=== PATIENT | male | born 1935 | race African-American/Black ===

== ENCOUNTER 2018-03-28 10:22 | Inpatient (IN) | payer MEDICARE ==
[~2018-03-28] VITALS: Ht 172.7 cm; Wt 66.0 kg
[~2018-03-28 10:22] MED LIST: ATEN50TA PO; BISA-81 RC; CALC3.8S NS; FERR325T6 PO; FINA5TAB11 PO; LIP40 PO; MULT-477 PO; OMEP20CA10 PO; SENN8.6T71 PO
[2018-03-28] MEDS ORDERED: DEXT 5%/LACTATED RINGERS 1,000 ML IV SCH (10:50)
[2018-03-28] MEDS ORDERED: SODIUM CHLORIDE 0.9% 1,000 ML IV SCH (12:15)
[2018-03-28] MEDS ORDERED: BACITRACIN 50,000 UNITS/VIAL ONE (13:59)
[2018-03-28] MEDS ORDERED: FENTANYL CITRATE/PF 50MCG/ML 2ML VIAL ONE (14:00)
[2018-03-28] MEDS ORDERED: PROPOFOL 200MG/20ML VIAL IV ONE (14:00)
[2018-03-28] MEDS ORDERED: LOSA25TA12 PO (14:50)
[2018-03-28] MEDS ORDERED: INSU100I28 SQ (14:50)
[2018-03-28] MEDS ORDERED: METO25TA6 PO (14:50)
[2018-03-28] MEDS ORDERED: DOCU250C69 PO (14:50)
[2018-03-28] MEDS ORDERED: PANT40TA4 PO (14:50)
[2018-03-28] MEDS ORDERED: ACET-2853 PO (14:50)
[2018-03-28] MEDS ORDERED: CHOL100044 PO (14:50)
[2018-03-28] MEDS ORDERED: [UNRECOGNIZED DRUG - OTHER] PO (14:50)
[2018-03-28] MEDS ORDERED: INSLIS SUBCUT (14:52)
[2018-03-28] MEDS ORDERED: VANCOMYCIN HCL 500 MG/VIAL ONE ×2 (15:00→15:15)
[2018-03-28] MEDS ORDERED: ONDANSETRON HCL 4MG/2ML INJ IV PRN ×2 (16:45→17:00)
[2018-03-28] MEDS ORDERED: FENTANYL CITRATE/PF 50MCG/ML 2ML VIAL IV PRN (16:45)
[2018-03-28] MEDS ORDERED: MORPHINE SULFATE 4 MG/ML CPJ (NOT FOR IM USE) IV PRN ×3 (16:45→17:00)
[2018-03-28] MEDS ORDERED: ACETAMINOPHEN 325MG TABLET PO PRN ×2 (17:00→21:45)
[2018-03-28] MEDS ORDERED: HYDROCODONE/ACETAMINOPHEN 5/325MG TABLET PO PRN ×2 (17:00)
[2018-03-28 19:30] VITALS: BP 146/77
[2018-03-28] MEDS ORDERED: DEXTROSE 50% WATER 50ML SYRINGE IV PRN (21:45)
[2018-03-28] MEDS ORDERED: CLONIDINE 0.1MG TABLET PO PRN (21:45)
[2018-03-28] MEDS: CEFAZOLIN 2,000 MG in DEXT 5% WATER 100 ML IV SCH (21:59)
[2018-03-28 23:47] VITALS: BP 140/83
[2018-03-29] MEDS: IPRATROPIUM/ALBUTEROL 0.5-3(2.5)MG/3ML NEB HHN SCH ×5 (04:00→20:36)
[2018-03-29 04:46] VITALS: BP 133/68
[2018-03-29] MEDS: CEFAZOLIN 2,000 MG in DEXT 5% WATER 100 ML IV SCH (04:53)
[2018-03-29] MEDS: BLOOD SUGAR DIAGNOSTIC STRIP TEST SCH ×4 (05:08→21:12)
[2018-03-29 06:06] LABS: BASOPHILS % 0.3 % (0.0-2.0); EOSINOPHILS % 1.3 % (0.0-5.0); HEMATOCRIT. 30.7 % (42.0-52.0); LYMPHOCYTES % 14.6 % (20.0-50.0); MEAN CORPUSCULAR HEMOGLOBIN 26.4 pg (28.0-32.0); MEAN CORPUSCULAR VOLUME 81.1 fL (80.0-94.0); MEAN PLATELET VOLUME 8.2 fl (7.4-10.4); MONOCYTES % 14.3 % (2.0-8.0); NEUTROPHILS % 69.5 % (40.0-76.0); PLATELET 338 x1000/uL (130-400); RED BLOOD CELL COUNT 3.78 mill/uL (4.7-6.1); RED CELL DISTRIBUTION WIDTH 14.9 % (11.6-14.6)
[2018-03-29 06:14] LABS: PROTHROMBIN TIME 10.1 sec (9.1-11.1)
[2018-03-29 06:43] LABS: CHLORIDE 107 mEq/L (98-107)
[2018-03-29] MEDS: INSULIN LISPRO 100 UNITS/ML SUBCUT SCH ×4 (08:10→21:22)
[2018-03-29] MEDS: FERROUS SULFATE 325MG TABLET PO SCH ×3 (08:30→17:56)
[2018-03-29] MEDS: APIXABAN 2.5 MG TABLET PO SCH ×3 (09:00→17:00)
[2018-03-29] MEDS: CALCIUM CARBONATE 1250MG TABLET (500MG ELEMENTAL CALCIUM) PO SCH ×2 (09:00→09:39)
[2018-03-29] MEDS: METOPROLOL TARTRATE 25MG TABLET PO SCH ×4 (09:00→21:12)
[2018-03-29] MEDS: LOSARTAN POTASSIUM 25 MG TABLET PO SCH ×2 (09:00→09:38)
[2018-03-29] MEDS ORDERED: CHOLECALCIFEROL (D3) 1000 UNIT TABLET PO SCH (09:00)
[2018-03-29] MEDS: CHOLECALCIFEROL (D3) 1000 UNIT TABLET PO SCH ×2 (09:00→09:39)
[2018-03-29] MEDS: DOCUSATE SODIUM 250MG CAPSULE PO SCH ×2 (09:00→09:38)
[2018-03-29] MEDS: MULTIVITAMINS,THER W-MINERALS TABLET PO SCH ×2 (09:00→09:38)
[2018-03-29] MEDS: FAMOTIDINE 20MG TABLET PO SCH ×4 (09:00→21:12)
[2018-03-29 12:00] VITALS: BP 124/69
[2018-03-29] MEDS: SODIUM CHL 0.45% + KCL 20MEQ/L 1,000 ML IV SCH (14:03)
[2018-03-29 16:00] VITALS: BP 122/62
[2018-03-29 20:00] VITALS: BP 121/57
[2018-03-30] VITALS: BP 133/65
[2018-03-30] MEDS: IPRATROPIUM/ALBUTEROL 0.5-3(2.5)MG/3ML NEB HHN SCH ×6 (00:30→20:46)
[2018-03-30] MEDS: SODIUM CHL 0.45% + KCL 20MEQ/L 1,000 ML IV SCH ×2 (02:40→20:51)
[2018-03-30 04:00] VITALS: BP 132/75
[2018-03-30] MEDS: BLOOD SUGAR DIAGNOSTIC STRIP TEST SCH ×4 (06:16→20:58)
[2018-03-30 08:00] VITALS: BP 133/74
[2018-03-30] MEDS: INSULIN LISPRO 100 UNITS/ML SUBCUT SCH ×4 (08:10→21:30)
[2018-03-30] MEDS: APIXABAN 2.5 MG TABLET PO SCH ×2 (09:00→17:00)
[2018-03-30] MEDS: DOCUSATE SODIUM 250MG CAPSULE PO SCH (09:00)
[2018-03-30] MEDS: FERROUS SULFATE 325MG TABLET PO SCH ×2 (10:22→18:10)
[2018-03-30] MEDS: FAMOTIDINE 20MG TABLET PO SCH ×2 (10:22→20:51)
[2018-03-30] MEDS: CALCIUM CARBONATE 1250MG TABLET (500MG ELEMENTAL CALCIUM) PO SCH (10:22)
[2018-03-30] MEDS: MULTIVITAMINS,THER W-MINERALS TABLET PO SCH (10:22)
[2018-03-30] MEDS: LOSARTAN POTASSIUM 25 MG TABLET PO SCH (10:23)
[2018-03-30] MEDS: METOPROLOL TARTRATE 25MG TABLET PO SCH ×2 (10:23→20:52)
[2018-03-30] MEDS: CHOLECALCIFEROL (D3) 1000 UNIT TABLET PO SCH (10:23)
[2018-03-30 11:09] LABS: HEMATOCRIT. 27.7 % (42.0-52.0); HEMOGLOBIN. 9.1 g/dL (14.0-18.0); MEAN CORPUSCULAR HEMOGLOBIN 26.7 pg (28.0-32.0); MEAN CORPUSCULAR VOLUME 81.5 fL (80.0-94.0); MEAN PLATELET VOLUME 8.1 fl (7.4-10.4); PLATELET 270 x1000/uL (130-400)
[2018-03-30 11:33] LABS: CHLORIDE 105 mEq/L (98-107)
[2018-03-30 12:09] LABS: PLATELET ESTIMATE NORMAL
[2018-03-30 16:00] VITALS: BP 131/73
[2018-03-30 19:11] VITALS: BP 140/80
[2018-03-30 19:54] VITALS: BP 123/71
[2018-03-31] MEDS: IPRATROPIUM/ALBUTEROL 0.5-3(2.5)MG/3ML NEB HHN SCH ×5 (00:38→16:00)
[2018-03-31 00:49] VITALS: BP 127/78
[2018-03-31 04:35] VITALS: BP 136/72
[2018-03-31] MEDS: BLOOD SUGAR DIAGNOSTIC STRIP TEST SCH ×2 (07:40→12:12)
[2018-03-31] MEDS: INSULIN LISPRO 100 UNITS/ML SUBCUT SCH ×2 (07:51→13:18)
[2018-03-31] MEDS: CHOLECALCIFEROL (D3) 1000 UNIT TABLET PO SCH (09:05)
[2018-03-31] MEDS: MULTIVITAMINS,THER W-MINERALS TABLET PO SCH (09:05)
[2018-03-31] MEDS: FERROUS SULFATE 325MG TABLET PO SCH (09:05)
[2018-03-31] MEDS: FAMOTIDINE 20MG TABLET PO SCH (09:05)
[2018-03-31] MEDS: SODIUM CHL 0.45% + KCL 20MEQ/L 1,000 ML IV SCH (09:05)
[2018-03-31] MEDS: DOCUSATE SODIUM 250MG CAPSULE PO SCH (09:05)
[2018-03-31] MEDS: APIXABAN 2.5 MG TABLET PO SCH (09:07)
[2018-03-31] MEDS: CALCIUM CARBONATE 1250MG TABLET (500MG ELEMENTAL CALCIUM) PO SCH (09:08)
[2018-03-31] MEDS: LOSARTAN POTASSIUM 25 MG TABLET PO SCH (09:17)
[2018-03-31] MEDS: METOPROLOL TARTRATE 25MG TABLET PO SCH (09:17)
[2018-03-31 09:44] LABS: BASOPHILS % 0.4 % (0.0-2.0); HEMATOCRIT. 29.5 % (42.0-52.0); HEMOGLOBIN. 9.3 g/dL (14.0-18.0); MEAN CORPUSCULAR HEMOGLOBIN 26.6 pg (28.0-32.0); MEAN CORPUSCULAR VOLUME 84.5 fL (80.0-94.0); MONOCYTES % 14.9 % (2.0-8.0); NEUTROPHILS % 56.7 % (40.0-76.0); PLATELET 257 x1000/uL (130-400); RED BLOOD CELL COUNT 3.49 mill/uL (4.7-6.1); RED CELL DISTRIBUTION WIDTH 15.1 % (11.6-14.6)
[2018-03-31 10:21] LABS: CHLORIDE 107 mEq/L (98-107)
[2018-03-31 12:00] VITALS: BP 155/79
[2018-03-31 15:18] VITALS: BP 155/77
[2018-03-31 16:00] VITALS: BP 132/70
== END 2018-03-31 18:07 | DRG 240 ==
LOC: ORIP 10:22 → 7WST 19:40
PROVIDERS: ADMIT Internal Medicine Geriatric Medicine; ATTEND Internal Medicine Geriatric Medicine
PROC: 0Y6C0Z3 Detachment at Right Upper Leg, Low, Open Approach (ICD-10-PCS; principal; 2018-03-28 17:30)
DX: E11.51 Type 2 diabetes mellitus with diabetic peripheral angiopathy without gangrene (principal); E44.0 Moderate protein-calorie malnutrition; L97.819 Non-pressure chronic ulcer of other part of right lower leg with unspecified severity; S82.301A Unspecified fracture of lower end of right tibia, initial encounter for closed fracture; L97.519 Non-pressure chronic ulcer of other part of right foot with unspecified severity; E11.621 Type 2 diabetes mellitus with foot ulcer; S82.831A Other fracture of upper and lower end of right fibula, initial encounter for closed fracture; D63.8 Anemia in other chronic diseases classified elsewhere; E86.0 Dehydration; I10 Essential (primary) hypertension; E11.42 Type 2 diabetes mellitus with diabetic polyneuropathy; M81.0 Age-related osteoporosis without current pathological fracture; N40.0 Benign prostatic hyperplasia without lower urinary tract symptoms; D72.829 Elevated white blood cell count, unspecified; F03.90 Unspecified dementia, unspecified severity, without behavioral disturbance, psychotic disturbance, mood disturbance, and anxiety; K57.90 Diverticulosis of intestine, part unspecified, without perforation or abscess without bleeding; M48.00 Spinal stenosis, site unspecified; W18.39XA Other fall on same level, initial encounter; Y93.89 Activity, other specified; Y92.89 Other specified places as the place of occurrence of the external cause; Y99.8 Other external cause status; Z68.22 Body mass index [BMI] 22.0-22.9, adult; Z74.01 Bed confinement status; Z86.010 Personal history of colon polyps; Z79.4 Long term (current) use of insulin; Z86.14 Personal history of Methicillin resistant Staphylococcus aureus infection; Z86.718 Personal history of other venous thrombosis and embolism; Z91.81 History of falling; Z87.440 Personal history of urinary (tract) infections; Z79.899 Other long term (current) drug therapy; Z98.49 Cataract extraction status, unspecified eye
CPT/HCPCS: 36415; 71045; 80048; 82962; 85025; 85610; 85730; 86850; 86900; 88307; 88311; 94640; 97162; A6261; J0690; J1815; J2704; J3010; J3370; J3480; J3490; J7050; J7060; J7620

== ENCOUNTER 2018-06-14 00:53 | Inpatient (IN) | payer MEDICARE, MEDICAID ==
[~2018-06-14] VITALS: Ht 170.2 cm; Wt 60.8 kg
[~2018-06-14 00:53] MED LIST changes: +ACET-2853 PO; -ATEN50TA PO; -BISA-81 RC; +CHOL100044 PO; +DOCU250C69 PO; -FINA5TAB11 PO; +INSLIS SUBCUT; +INSU100I28 SQ; -LIP40 PO; +LOSA25TA12 PO; +METO25TA6 PO; -OMEP20CA10 PO; +PANT40TA4 PO; -SENN8.6T71 PO; +[UNRECOGNIZED DRUG - OTHER] PO
[2018-06-14] MEDS ORDERED: VANCOMYCIN 1 G PREMIX 200 ML IV SCH ×2 (01:15→18:30)
[2018-06-14] MEDS ORDERED: SODIUM CHLORIDE 0.9% 1000ML BAG (SEPSIS BOLUS) IV ONE (01:15)
[2018-06-14] MEDS ORDERED: PIPERACILLIN/TAZOBACTAM 3.375GM/50ML PREMIX IV SCH (01:57)
[2018-06-14] MEDS ORDERED: DEXTROSE 50% WATER 50ML SYRINGE IV ONE ×2 (02:07→02:15)
[2018-06-14] MEDS ORDERED: DEXTROSE 50% WATER 50ML SYRINGE IV PRN (02:15)
[2018-06-14] MEDS ORDERED: AZITHROMYCIN 500 MG in DEXT 5% WATER 250 ML IV SCH (02:15)
[2018-06-14 02:45] LABS: BASOPHILS % 0.6 % (0.0-2.0); EOSINOPHILS % 0.1 % (0.0-5.0); HEMATOCRIT. 32.5 % (42.0-52.0); HEMOGLOBIN. 10.5 g/dL (14.0-18.0); MEAN CORPUSCULAR HEMOGLOBIN 27.5 pg (28.0-32.0); MEAN CORPUSCULAR VOLUME 84.7 fL (80.0-94.0); MEAN PLATELET VOLUME 8.6 fl (7.4-10.4); MONOCYTES % 2.5 % (2.0-8.0); NEUTROPHILS % 85.8 % (40.0-76.0); PLATELET 488 x1000/uL (130-400); RED BLOOD CELL COUNT 3.84 mill/uL (4.7-6.1); RED CELL DISTRIBUTION WIDTH 20.6 % (11.6-14.6)
[2018-06-14 02:49] LABS: CHLORIDE 99 mEq/L (98-107)
[2018-06-14 02:52] LABS: INR 1.1; PARTIAL THROMBOPLASTIN TIME 33.8 sec (23.4-31.0)
[2018-06-14] MEDS ORDERED: ACETAMINOPHEN 650MG SUPP PR SCH (03:47)
[2018-06-14] MEDS ORDERED: NOREPINEPHRINE 4 MG in DEXT 5% WATER 246 ML IV ONE (04:30)
[2018-06-14 04:36] LABS: CLARITY URINE CLOUDY (CLEAR); COLOR URINE YELLOW (YELLOW); KETONES URINE NEGATIVE (NEGATIVE); LEUKOCYTE ESTERASE URINE 3+ (NEGATIVE); NITRITE URINE NEGATIVE (NEGATIVE); OCCULT BLOOD URINE 1+ (NEGATIVE); PROTEIN URINE 1+ (NEGATIVE); SPECIFIC GRAVITY URINE 1.018 (1.005-1.030)
[2018-06-14] MEDS ORDERED: NOREPINEPHRINE 4 MG in DEXT 5% WATER 246 ML IV SCH (05:00)
[2018-06-14] MEDS ORDERED: SODIUM CHLORIDE 0.9% 1,000 ML IV ONE (05:45)
[2018-06-14] MEDS ORDERED: KETOROLAC 15MG/ML VIAL IV SCH (05:54)
[2018-06-14] MEDS ORDERED: ONDANSETRON HCL 4MG/2ML INJ IV PRN (08:00)
[2018-06-14] MEDS ORDERED: ACETAMINOPHEN 325MG TABLET GT PRN (08:00)
[2018-06-14] MEDS ORDERED: DEXT 5%/0.9% NACL 1,000 ML IV SCH (08:15)
[2018-06-14] MEDS ORDERED: IPRATROPIUM/ALBUTEROL 0.5-3(2.5)MG/3ML NEB HHN SCH (08:20)
[2018-06-14] MEDS ORDERED: PIPERACILLIN/TAZ 3.375G PREMIX 50 ML IV SCH (08:30)
[2018-06-14] MEDS ORDERED: ENOXAPARIN 40MG/0.4ML SYR SUBCUT SCH (09:00)
[2018-06-14 09:21] LABS: BG BASE EXCESS -0.8 mmol/L (-2.0-2.0); BG CARBOXYHEMOGLOBIN 0.6 % (0.5-1.5); BG DEOXYHEMOGLOBIN 13.6 % (0.0-5.0); BG FRACTION INSPIRED OXYGEN 99.8; BG HCO3 ACT 22.4 mmol/L (22.0-26.0); BG METHEMOGLOBIN 0.2 % (0.0-1.5); BG OXYGEN SATURATION 86.3 % (92.0-98.5); BG OXYHEMOGLOBIN 85.6 % (94.0-97.0); BG PCO2 31.6 mmHg (35.0-45.0); BG PH 7.469 (7.350-7.450); BG PO2 50.1 mmHg (75.0-100.0); BG SAMPLE SITE RIGHT BRACHIAL; BG TOTAL HEMOGLOBIN 9.3 g/dL (12.0-18.0); BG VENT MODE MASK - NRB
[2018-06-14 15:04] LABS: CREATINE KINASE MB FRACTION 4.8 ng/mL (0.5-3.6)
[2018-06-14 16:00] VITALS: BP 96/56
[2018-06-14] MEDS ORDERED: IPRATROPIUM/ALBUTEROL 0.5-3(2.5)MG/3ML NEB HHN PRN (17:15)
== END 2018-06-14 20:43 | disposition expired | DRG 871 ==
LOC: ER 00:53 → 5WST 06:39 → ENRESERV 10:05 → CANRESERV 10:05 → EDBEDREQSVC 10:55 → ENRESERV 15:16
PROVIDERS: ADMIT Internal Medicine Geriatric Medicine; ATTEND Internal Medicine Geriatric Medicine
PROC: 05HY33Z Insertion of Infusion Device into Upper Vein, Percutaneous Approach (ICD-10-PCS; principal; 2018-06-14)
PROC: B544ZZA Ultrasonography of Left Jugular Veins, Guidance (ICD-10-PCS; 2018-06-14)
DX: A41.9 Sepsis, unspecified organism (principal); E43 Unspecified severe protein-calorie malnutrition; G92 Toxic encephalopathy; J69.0 Pneumonitis due to inhalation of food and vomit; J96.01 Acute respiratory failure with hypoxia; R65.21 Severe sepsis with septic shock; G82.20 Paraplegia, unspecified; K92.2 Gastrointestinal hemorrhage, unspecified; N17.9 Acute kidney failure, unspecified; I50.42 Chronic combined systolic (congestive) and diastolic (congestive) heart failure; D64.9 Anemia, unspecified; E11.22 Type 2 diabetes mellitus with diabetic chronic kidney disease; E11.649 Type 2 diabetes mellitus with hypoglycemia without coma; F03.90 Unspecified dementia, unspecified severity, without behavioral disturbance, psychotic disturbance, mood disturbance, and anxiety; J44.9 Chronic obstructive pulmonary disease, unspecified; K29.70 Gastritis, unspecified, without bleeding; L89.90 Pressure ulcer of unspecified site, unspecified stage; M48.00 Spinal stenosis, site unspecified; N18.9 Chronic kidney disease, unspecified; N40.0 Benign prostatic hyperplasia without lower urinary tract symptoms; R13.10 Dysphagia, unspecified; Y95 Nosocomial condition; Z66 Do not resuscitate; Z79.4 Long term (current) use of insulin; Z86.718 Personal history of other venous thrombosis and embolism; Z89.611 Acquired absence of right leg above knee; Z93.1 Gastrostomy status; Z68.21 Body mass index [BMI] 21.0-21.9, adult
CPT/HCPCS: 36415; 36600; 71045; 82375; 82553; 82805; 82962; 83605; 84145; 84484; 93005; 93970; 96365; 96375; 99291; J0456; J1650; J1885; J2543; J3370; J3490; J7030; J7042; J7060; J7620